=== PATIENT | female | born 1975 | race Two or more races ===

== ENCOUNTER 2018-09-24 07:59 | Emergency (ER) | payer SELFPAY ==
[~2018-09-24] VITALS: Ht 162.6 cm; Wt 61.2 kg
[2018-09-24] MEDS ORDERED: Oxymetazoline 0.05% Na Spray 30ml NASAL ONE (08:30)
[2018-09-24 08:40] VITALS: BP 142/93
--- NOTE | 2018-09-24 08:45 | Emergency Room Report ---
History of Present Illness General Chief Complaint: Nosebleed Source: Patient Present Illness HPI The patient states that around 6:30 this morning she developed a nosebleed. She states that it woke her up. She denies recent illness. She denies cough or congestion. She denies fever or chills. She denies any other bleeding. She denies gum bleeding or easy bruising. She denies chest pain or shortness of breath. She denies abdominal pain. She denies hematuria. She has no other complaints. Allergies: Coded Allergies: No Known Allergies (Unverified , 09/24/18) Patient History Past Medical History: none, see triage record Social History: Denies: smoking, alcohol use, drug use Now: No Reviewed Nursing Documentation: PMH: Agreed; PSxH: Agreed Nursing Documentation-PMH Past Medical History: No Stated History Review of Systems All Other Systems: negative except mentioned in HPI Physical Exam Vital Signs Date Time Temp Pulse Resp B/P (MAP) Pulse Ox O2 Delivery O2 Flow Rate FiO2 09/24/18 08:10 98.1 88 17 159/95 99 Room Air Sp02 EP Interpretation: reviewed, normal General Appearance: no apparent distress, alert, GCS 15, non-toxic Head: normocephalic, atraumatic Eyes: bilateral eye normal inspection, bilateral eye PERRL ENT: hearing grossly normal, normal pharynx, no angioedema, normal voice, other - Dried blood in R. nares with e/o recent bleeding. Neck: full range of motion, supple/symm/no masses Respiratory: chest non-tender, lungs clear, normal breath sounds, no respiratory distress, no retraction, no accessory muscle use, speaking full sentences Cardiovascular #1: regular rate, rhythm, no edema Rectal: deferred Musculoskeletal: back normal, gait/station normal, normal range of motion, non- tender Neurologic: alert, oriented x3, responsive, motor strength/tone normal, sensory intact, speech normal Psychiatric: judgement/insight normal, memory normal, mood/affect normal, no suicidal/homicidal ideation Skin: normal color, no rash, warm/dry, well hydrated Medical Decision Making Diagnostic Impression: Primary Impression: Epistaxis ER Course This patient has epistaxis. It appears that it is a simple mucosal epistaxis. The bleeding was controlled with pressure and Afrin spray. The patient has no history of chronic medical illnesses her anemia. She has no history of easy bleeding and no evidence on physical exam that would make me concerned for a coagulopathy. I do not feel this patient needs further workup or evaluation the emergency department. The patient was educated on how to stop the epistaxis on her own. She is given return precautions and follow-up instructions. Please note that this Emergency Department Report was dictated using [employer] machine operator technology software, occasionally this can lead to erroneous entry secondary to interpretation by the dictation equipment. Last Vital Signs Date Time Temp Pulse Resp B/P (MAP) Pulse Ox O2 Delivery O2 Flow Rate FiO2 09/24/18 08:10 98.1 88 17 159/95 99 Room Air Status: improved Disposition: HOME, SELF-CARE Condition: Stable Scripts No Active Prescriptions or Reported Meds Patient Instructions: Nosebleed, Kban-[id number] Sahara Espinal DO Sep 24, 2018 08:45
[2018-09-24 08:56] VITALS: BP 142/93
[2018-09-24] MEDS ORDERED: NASAL SPRAY EXT30 ML NS (20:39)
[2018-09-24] MEDS ORDERED: AMOXICILLIN500 MG ORAL (21:41)
== END 2018-09-24 08:56 | disposition home or self-care (01) ==
LOC: EMR 08:27
DX: R04.0 Epistaxis (principal)
CPT/HCPCS: 99283

== ENCOUNTER 2018-09-24 19:30 | Emergency (ER) | payer SELFPAY ==
[~2018-09-24] VITALS: Ht 170.2 cm; Wt 61.2 kg
[2018-09-24] MEDS ORDERED: Tranexamic Acid(Epistaxis Use) TOPIC ONE (20:00)
[2018-09-24] MEDS ORDERED: Oxymetazoline 0.05% Na Spray 30ml NASAL ONE (20:00)
--- NOTE | 2018-09-24 20:11 | Emergency Room Report ---
History of Present Illness General Chief Complaint: Nosebleed Present Illness HPI 42 YO Female presents to the ED c/o recurrence of epistaxis which began this am. and was seen here in the ED. pt. had relief of symptoms temporarily after initial ED intervention. Pt. denies hx of coagulopathy. Patient states that her nose began bleeding again after she bent over to pick something up from the ground. Patient denies trauma or fall she denies digital manipulation, sneezing , blowing her nose or any other trauma to the nose. She denies history of heavy periods or bleeding gums. Patient reports acute onset this morning which awoke her from her sleep and states that she does not have a history of nosebleeds. Denies headache, dizziness, syncope or altered mental status. (Carrie Duran) Allergies: Coded Allergies: No Known Allergies (Unverified , 09/24/18) Patient History Past Medical History: see triage record Past Surgical History: none Pertinent Family History: none Now: No Reviewed Nursing Documentation: PMH: Agreed; PSxH: Agreed (Carrie Duran) Review of Systems All Other Systems: negative except mentioned in HPI (Carrie Duran) Physical Exam Vital Signs Date Time Temp Pulse Resp B/P (MAP) Pulse Ox O2 Delivery O2 Flow Rate FiO2 09/24/18 19:34 98.6 111 18 183/86 95 Room Air Sp02 EP Interpretation: reviewed, normal General Appearance: no apparent distress, alert, GCS 15, non-toxic Head: normocephalic, atraumatic ENT: normal pharynx, normal voice, nasal congestion - epistaxis -anterior- septal ( hesslebach's) right nare. Respiratory: lungs clear, normal breath sounds, speaking full sentences Cardiovascular #1: tachycardia Musculoskeletal: back normal, gait/station normal, normal range of motion, non- tender Neurologic: alert, oriented x3, responsive, motor strength/tone normal, sensory intact, normal gait, speech normal, grossly normal Psychiatric: judgement/insight normal Skin: normal color, no rash, warm/dry, well hydrated, other - no bruises (Carrie Duran) Medical Decision Making PA Attestation Dr. Spence is my supervising Physician whom patient management has been discussed with. (Carrie Duran) Diagnostic Impression: Primary Impression: Epistaxis ER Course 42 YO Female presents to the ED c/o recurrence of epistaxis which began this am. and was seen here in the ED. pt. had relief of symptoms temporarily after initial ED intervention. Pt. denies hx of coagulopathy. Patient states that her nose began bleeding again after she bent over to pick something up from the ground. Patient denies trauma or fall she denies digital manipulation, sneezing , blowing her nose or any other trauma to the nose. She denies history of heavy periods or bleeding gums. Patient reports acute onset this morning which awoke her from her sleep and states that she does not have a history of nosebleeds. Denies headache, dizziness, syncope or altered mental status. Ddx considered but are not limited to epistaxis , clotting disorder, above therapeutic levels on blood thinner. nasal trauma, septal hematoma. Vital signs: are WNL, pt. is afebrile H&PE are most consistent with: Mild Epistaxis -No evidence of trauma, pt. not on blood thinning medications no other symptoms indicating clotting abnormality. ORDERS: none required at this time, the diagnosis is clinical ED INTERVENTIONS: - Afrin spray -TXA administered x 2 re-bleeding occurred just prior to d/c, so nasal packing was placed. Bleeding is controlled at this time. pt. to return to ED for nasal packing removal in 48 hours, pt. will be placed on amoxicillin. again upon attempt to d/c pt. had reoccurrence of bleeding thought the nasal packing. This prompted labs to be ordered. DISPOSITION: awaiting lab results, pt. signed out to Dr. Heard (Carrie Duran) ER Course Please refer to the initial note for the presentation patient was here earlier this morning with epistaxis after emergency intervention she was improved however later on this evening patient again had episode of epistaxis While the patient was here and getting ready to be disposition after initial packing She again started having trickling of blood and was brought back into the room At this time on my evaluation patient had the initial packing removed after deflation I had the patient clear and blow her nose there was some clots that were past After that a 7.5 cm packing was applied after epinephrine with lidocaine injected on it The balloon was inflated and this was inserted only on the right side Patient tolerated the procedure well After this was observed for about one and a half to 2 hours Reports that she feels well and does not feel any trickling in the back of her throat of blood Patient was provided with antibiotics on previous presentation Will remain on this Patient is provided with a list of clinics for follow-up if she is not able to do so will return here in the next 3-4 days for removal of the packing Blood work was also performed given the repeat presentation which were at baseline levels Labs Test 09/24/18 20:20 White Blood Count 11.3 K/UL (4.8-10.8) Red Blood Count 4.31 M/UL (4.20-5.40) Hemoglobin 13.1 G/DL (12.0-16.0) Hematocrit 39.6 % (37.0-47.0) Mean Corpuscular Volume 92 FL (80-99) Mean Corpuscular Hemoglobin 30.5 PG (27.0-31.0) Mean Corpuscular Hemoglobin Concent 33.2 G/DL (32.0-36.0) Red Cell Distribution Width 11.6 % (11.6-14.8) Platelet Count 297 K/UL (150-450) Mean Platelet Volume 7.1 FL (6.5-10.1) Neutrophils (%) (Auto) 82.2 % (45.0-75.0) Lymphocytes (%) (Auto) 13.2 % (20.0-45.0) Monocytes (%) (Auto) 3.9 % (1.0-10.0) Eosinophils (%) (Auto) 0.2 % (0.0-3.0) Basophils (%) (Auto) 0.5 % (0.0-2.0) Prothrombin Time 10.5 SEC (9.30-11.50) Prothromb Time International Ratio 1.0 (0.9-1.1) Activated Partial Thromboplast Time 26 SEC (23-33) (Andrew Heard DO) Last Vital Signs Date Time Temp Pulse Resp B/P (MAP) Pulse Ox O2 Delivery O2 Flow Rate FiO2 09/24/18 19:34 98.6 111 18 183/86 95 Room Air (Carrie Duran) Status: improved (Andrew Heard DO) Disposition: HOME, SELF-CARE Condition: Improved Signed Out To: Dr. Heard (Carrie Duran) Scripts Amoxicillin* (AMOXIL*) 500 Mg Capsule 500 MG ORAL BID for 7 Days, #14 CAP Prov: Carrie Duran 09/24/18 Oxymetazoline Hcl (NASAL SPRAY EXTRA MOISTURIZING) 30 Ml [place] 1 SPR NS BID, #30 SPRAY Prov: Carrie Duran 09/24/18 Patient Instructions: Nosebleed Additional Instructions: Take medications as directed. Avoid blowing your nose, bending forward, or sniffling as this can cause bleeding to occur again. in a few days you may begin keeping nose moisturized. Follow up with a Primary Care Provider in 3-5 days, even if your symptoms have resolved. --Please review list of primary care clinics, if you do not already have a primary care provider Return sooner to ED if new symptoms occur, or current symptoms become worse. - Please note that this Emergency Department Report was dictated using [employer] decorator technology software, occasionally this can lead to erroneous entry secondary to interpretation by the dictation equipment. Carrie Duran Sep 24, 2018 20:11 Andrew Heard DO Sep 24, 2018 23:41
[2018-09-24 20:33] VITALS: BP 152/89
[2018-09-24] MEDS ORDERED: NASAL SPRAY EXT30 ML NS (20:39)
[2018-09-24] MEDS ORDERED: AMOXICILLIN500 MG ORAL (21:41)
[2018-09-24] MEDS ORDERED: Lidocaine 1% 10mg/ml/Epi 0.005mg/ml 30ml vial INJ ONE (22:15)
[2018-09-24 22:21] VITALS: BP 161/86
[2018-09-24 22:54] LABS: BASOPHILS % (AUTO) 0.5 % (0.0-2.0); EOSINOPHILS % (AUTO) 0.2 % (0.0-3.0); HEMATOCRIT 39.6 % (37.0-47.0); HEMOGLOBIN 13.1 G/DL (12.0-16.0); LYMPHOCYTES % (AUTO) 13.2 % (20.0-45.0); MEAN CORPUSCULAR VOLUME 92 FL (80-99); MONOCYTES % (AUTO) 3.9 % (1.0-10.0); NEUTROPHILS % (AUTO) 82.2 % (45.0-75.0); PLATELET COUNT 297 K/UL (150-450); RED BLOOD COUNT 4.31 M/UL (4.20-5.40); RED CELL DISTRIBUTION WIDTH 11.6 % (11.6-14.8); WHITE BLOOD COUNT 11.3 K/UL (4.8-10.8)
[2018-09-24 23:15] VITALS: BP 151/96
[2018-09-25 00:50] VITALS: BP 151/96
== END 2018-09-25 00:50 | disposition home or self-care (01) ==
LOC: EMR 20:19
DX: R04.0 Epistaxis (principal)
CPT/HCPCS: 36415; 85025; 85610; 85730; 99283